=== PATIENT | female | born 1960 | race Hispanic/Latino ===

== ENCOUNTER 2017-05-26 16:17 | Emergency (ER) | payer OTHER, BC ==
[~2017-05-26] VITALS: Ht 157.5 cm; Wt 75.0 kg
[2017-05-26 16:37] VITALS: BP 138/78
[2017-05-26 17:05] LABS: HEMATOCRIT 41.2 % (36.0-46.0); MCH 28.5 PG (29.0-34.0); MCV 83.7 FL (83-99); MEAN PLAT.VOLUME 9.9 uM^3 (9.5-12.4); PLATELET COUNT 308 K/uL (156-360); RBC DIS.WIDTH-CV 13.4 % (11.8-14.6); RBC DIS.WIDTH-SD 41.3 % (39-53); RED BLOOD COUNT 4.92 M/uL (3.80-5.20)
[2017-05-26 17:13] LABS: CHLORIDE 103 mEq/L (99-109)
[2017-05-26 17:14] LABS: POTASSIUM 4.3 mEq/L (3.7-5.4); SODIUM 137 mEq/L (136-147)
[2017-05-26 17:16] LABS: GLUCOSE 107 mg/dL (70-99)
[2017-05-26 17:17] LABS: ANION GAP 12 MEQ/L (2-14)
[2017-05-26 17:18] LABS: TOTAL BILIRUBIN 0.3 mg/dL (0.0-1.0)
[2017-05-26 17:19] LABS: ALKALINE PHOSPHATASE 71 IU/L (3-129)
[2017-05-26 17:21] LABS: UREA NITROGEN (BUN) 18 mg/dL (9-23)
[2017-05-26 17:23] LABS: GFR ESTIMATE (CALCULATED) > 59 mL/min/; LIPASE 28 U/L (1.0-51.0)
[2017-05-26 17:52] LABS: ADD MIUA? YES; BILIRUBIN NEGATIVE; BLOOD LARGE; COLOR YELLOW ((YELLOW)); GLUCOSE (STRIP) NEGATIVE; KETONES NEGATIVE; LEUKOCYTES MODERATE; NITRITE NEGATIVE; PROTEIN (STRIP) NEGATIVE; SPECIFIC GRAVITY 1.006 (1.000-1.030); UROBILINOGEN 0.2 MG/DL (0.2-1.0)
[2017-05-26 18:09] LABS: WHITE BLOOD CELLS 0-5 /HPF (0-5)
[2017-05-26 18:10] LABS: BACTERIA 2+ /HPF; EPITHELIAL CELLS 1+ /HPF; MUCUS NONE SEEN /LPF
[2017-05-26] MEDS ORDERED: FLEXERIL10 MG PO (18:26)
[2017-05-26] MEDS ORDERED: PERCOCET 5/31 TABLET PO (18:26)
== END 2017-05-26 19:19 | disposition home or self-care (01) ==
LOC: EME 16:17
PROVIDERS: Nurse Practitioner Family
DX: S23.3XXA Sprain of ligaments of thoracic spine, initial encounter (principal); S33.5XXA Sprain of ligaments of lumbar spine, initial encounter; S30.1XXA Contusion of abdominal wall, initial encounter; V43.52XA Car driver injured in collision with other type car in traffic accident, initial encounter; Y92.410 Unspecified street and highway as the place of occurrence of the external cause; E04.1 Nontoxic single thyroid nodule
CPT/HCPCS: 72129; 72132; 74177; 80053; 81003; 83690; 85027; J3010; J7030